=== PATIENT | female | born 2000 | race Caucasian/White ===

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

== ENCOUNTER 2019-09-26 09:28 | Emergency (ER) | payer OTHER, MEDICAID ==
[2019-09-26 09:39] VITALS: BP 134/82
[2019-09-26] MEDS ORDERED: CHERRY SYRUP 10 ML UDC PO ONE (10:08)
[2019-09-26] MEDS ORDERED: DEXAMETHASONE 10 MG/ML VIAL PO STA (10:08)
--- NOTE | 2019-09-26 10:15 | ED Physician Documentation ---
PD HPI HEENT - Stated complaint Stated Complaint: SORE THROAT N/V - Chief complaint Chief Complaint: Heent - History obtained from History obtained from: Patient - History of Present Illness Timing - onset: How many days ago (3) Timing - duration: Days (3) Timing - details: Gradual onset, Still present Location: Throat Improves: Medication Worsens: Swalllowing Associated symptoms: Fever, Congestion, Cough, Other (rash) Similar symptoms before: Diagnosis (tonsilitis) Recently seen: Clinic - Additional information Additional information: 18-year-old female has developed a sore throat and cough and she has now developed blisters to her hands and feet consistent with yzwp-gfse-guf-mouth disease. She did have exposure to a brother of hers over [place] break with tcgx-qkus-qhp-mouth. She did go into the clinic that little more and was diagnosed with jlbr-aexf-rxs-mouth. She is concerned about being able to work with this and requests a work note. She has enlarged tonsils that are cryptic and has had multiple episodes of tonsillitis previously. Review of Systems Constitutional: reports: Fever, Chills, Myalgias, Fatigue Eyes: denies: Decreased vision Ears: denies: Ear pain Nose: reports: Congestion Throat: reports: Sore throat Cardiac: denies: Chest pain / pressure, Palpitations Respiratory: reports: Cough. denies: Dyspnea GI: denies: Abdominal Pain, Nausea, Vomiting : denies: Dysuria, Frequency Skin: reports: Rash Musculoskeletal: reports: Back pain. denies: Neck pain Neurologic: denies: Generalized weakness, Focal weakness, Numbness PD PAST MEDICAL HISTORY - Past Medical History Cardiovascular: None Respiratory: None Endocrine/Autoimmune: None HEENT: Other - Past Surgical History Past Surgical History: No - Present Medications Home Medications: Ambulatory Orders Medication Instructions Recorded Confirmed Doxycycline Hyclate mg PO 09/26/19 Etonogestrel [Nexplanon] 68 mg SQ 09/26/19 - Allergies Allergies/Adverse Reactions: Allergies Allergy/AdvReac Type Severity Reaction Status Date / Time No Known Drug Allergies Allergy Verified 09/26/19 09:39 - Social History Does the pt smoke?: No Smoking Status: Never smoker Does the pt drink ETOH?: No Does the pt have substance abuse?: No - Immunizations Immunizations are current?: Yes - POLST Patient has POLST: No PD ED PE NORMAL - Vitals Vital signs reviewed: Yes (hypertensive ) - General General: Alert and oriented X 3, No acute distress, Well developed/nourished - HEENT HEENT: Atraumatic, PERRL, EOMI, Ears normal, Other (pharynx is with 2+ cryptic tonsil on right and 3+ on left. There is minimal exudate. ) - Neck Neck: Supple, no meningeal sign, No bony TTP, Other (shoddy adenopathy bilat) - Cardiac Cardiac: RRR, No murmur - Respiratory Respiratory: No respiratory distress, Clear bilaterally - Abdomen Abdomen: Soft, Non tender - Back Back: No CVA TTP, No spinal TTP - Derm Derm: Normal color, Warm and dry - Extremities Extremities: No deformity, No edema, Other (There are multiple erythematous papules to the palms. ) - Neuro Neuro: Alert and oriented X 3, No motor deficit, No sensory deficit, Normal speech Eye Opening: Spontaneous Motor: Obeys Commands Verbal: Oriented GCS Score: 15 - Psych Psych: Normal mood, Normal affect Results - Vitals Vitals: Vital Signs - 24 hr 09/26/19 09:36 Temperature 36.4 C L Heart Rate 65 Respiratory 18 Rate Blood Pressure 134/82 H O2 Saturation 98 Oxygen O2 Source Room air - Labs Labs: Laboratory Tests 09/26/19 09:45 Group A Strep Rapid Negative PD MEDICAL DECISION MAKING - ED course Complexity details: considered differential, d/w patient ED course: 18-year-old female with sore throat and rash to hands and feet has ejfp-fhrh-gak-mouth disease and she does have cryptic exudative tonsils as well. These are chronic. Departure - Departure Disposition: 01 Home, Self Care Clinical Impression: Hand, foot and mouth disease Condition: Stable Instructions: ED Hand Foot Mouth Disease Ch Follow-Up: [facility] [Provider Group] [facility] [Provider Group] Forms: Activity restrictions
[2019-09-26 10:42] LABS: RAPID STREP SCREEN Negative (Negative)
== END 2019-09-26 10:53 | disposition home or self-care (01) ==
LOC: ED 09:28
DX: B08.4 Enteroviral vesicular stomatitis with exanthem (principal); J35.1 Hypertrophy of tonsils
CPT/HCPCS: 87070; 87430; 99283; 99284; A9270

== ENCOUNTER 2021-07-27 02:11 | Emergency (ER) | payer MEDICAID, OTHER ==
--- NOTE | 2021-07-27 02:45 | ED Physician Documentation ---
PD HPI LOWER EXT INJURY - Stated complaint Stated Complaint: R KNEE INJ - Chief complaint Chief Complaint: Trauma Ext - History obtained from History obtained from: Patient - History of Present Illness PD HPI LOW EXT INJURY LOCATION: Right, Knee Type of injury: Twist Where injury occurred: Other Timing - onset: Today Improved by: Rest Worsened by: Moving (flexion) Associated symptoms: No: Weakness, Numbness, Tingling, Swelling Similar symptoms before: Has not had sx before Recently seen: Not recently seen - Additional information Additional information: this afternoon, patient was exercising at a gym on [employer] practicing kicking and with the twisting motion of one of the kicks, she had sudden onset of right knee pain with popping sensation. Pain has steadily worsened and is exacerbated with weight-bearing as well as with flexion Review of Systems Musculoskeletal: reports: Joint pain, Pain with weight bearing. denies: Joint swelling Neurologic: denies: Focal weakness, Numbness PD PAST MEDICAL HISTORY - Past Medical History Past Medical History: No Cardiovascular: None Respiratory: None Endocrine/Autoimmune: None HEENT: Other - Past Surgical History Past Surgical History: Yes HEENT: Tonsil/Adenoidectomy - Present Medications Home Medications: Ambulatory Orders Medication Instructions Recorded Confirmed HYDROcod/ACETAM 5/325 [[place] 5/325] 1 - 2 tablet PO Q6H PRN #14 tablet 07/27/21 Ibuprofen [Motrin] 600 mg PO Q6H PRN #20 tab 07/27/21 - Allergies Allergies/Adverse Reactions: Allergies Allergy/AdvReac Type Severity Reaction Status Date / Time No Known Drug Allergies Allergy Verified 07/27/21 02:20 - Social History Does the pt smoke?: No Smoking Status: Never smoker Does the pt drink ETOH?: Yes ETOH Use: Wine Does the pt have substance abuse?: No - Immunizations Immunizations are current?: Yes - POLST Patient has POLST: No PD ED PE NORMAL - Vitals Vital signs reviewed: Yes - General General: Alert and oriented X 3, No acute distress, Well developed/nourished - Extremities Extremities: No deformity, No tenderness to palpate, No edema, No calf tenderness / cord PD ED PE EXPANDED - Extremities Extremities: Limited ROM (limited right knee flexion due to exacerbation of pain ) Results - Vitals Vitals: Vital Signs - 24 hr 07/27/21 04:40 Heart Rate 78 Respiratory 18 Rate Blood Pressure 137/72 H O2 Saturation 99 Oxygen O2 Source Room air - Rads (name of study) right knee xrays Radiology: Prelim report reviewed, See rad report PD MEDICAL DECISION MAKING - ED course Complexity details: reviewed results, re-evaluated patient, considered differential, d/w patient ED course: HPI suggestive of right knee sprain. nontender on exam although flexion is limited due to worsening pain with attempts to flex right knee. Normal plain- film xrays. Placed in knee immobilizer and given crutches to minimize movement and weight-bearing. Given ibuprofen in ED, take-home vicodin and rx for these medications transmitted to her pharmacy I am prescribing a short course of short-acting opioid pain medication for this patient. 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 I have discussed that the opioids are for short term therapy only, and will not be refilled from the ED. Departure - Departure Disposition: 01 Home, Self Care Clinical Impression: Right knee sprain Qualifiers: Encounter type: initial encounter Involved ligament of knee: unspecified ligament Qualified Code(s): S83.91XA - Sprain of unspecified site of right knee, initial encounter Condition: Good Instructions: ED Crutch Walking, ED Immobilizer Knee, ED Sprain Knee Follow-Up: Xu Allen MD [Provider Admit Priv/Credential] - Prescriptions: Ibuprofen [Motrin] 600 mg PO Q6H PRN #20 tab PRN Reason: Pain HYDROcod/ACETAM 5/325 [[place] 5/325] 1 - 2 tablet PO Q6H PRN #14 tablet PRN Reason: Pain Comments: A prescription for ibuprofen and a prescription for hydrocodone with acetaminophen have been electronically submitted to [facility] pharmacy in [place]. I am prescribing a short course of narcotic pain medication for you. These are potentially dangerous and addictive medications that should be used carefully. These medications may constipate you. Take an hwlm-fme-nccdrgo stool softener (docusate) twice daily with plenty of water while taking these medications. If you go 24 hours without a bowel movement, take khtq-eaz-rewwobd miralax, per package instructions. Do not drink or drive while taking these medications. If you received narcotic or sedating medications while in the emergency department, do not drive for 24 hours. Store this medication in a safe, secure place and out of reach of children. It is a violation of federal law to give or sell this medication to another person or to use in a manner other than prescribed. The ED will not refill narcotic prescriptions, including prescriptions lost or stolen. To dispose of unwanted medications: 1. [facility] at [address] in [place] has a medication drop box. They accept prescription medications (in pill form) Saturday through Saturday 9:00 a.m. to 5:00 p.m. 2. The [facility] [employer] accepts prescription medications (in pill form only) for disposal year round. Call for more information. 3. Contact the [facility] for the next [employer] sponsored prescription drug collection event. , [phone], or [phone]; Discharge Date/Time: 07/27/21 04:48
[2021-07-27] MEDS ORDERED: IBUPROFEN 600 MG TABLET PO STA (03:19)
[2021-07-27] MEDS ORDERED: HYDROcod/ACET 5/325 Prepack 4 PO STA (03:19)
[2021-07-27 04:40] VITALS: BP 137/72
--- NOTE | 2021-07-27 08:47 | XRAY Report ---
PROCEDURE: Knee 3 View RT INDICATIONS: Quay a crack in R knee while exercising yesterday TECHNIQUE: 3 views of the right knee were acquired. COMPARISON: None. FINDINGS: Bones: No fractures or dislocations. There is minimal joint space narrowing in the medial compartme nt. No suspicious bony lesions. Soft tissues: No joint effusion. No suspicious soft tissue calcifications. IMPRESSION: 1. No fracture or dislocation. Concordant with preliminary report. Reviewed by: Dennys Nugent MD on 07/27/2021 8:45 AM PST Approved by: Dennys Nugent MD on 07/27/2021 8:45 AM PST Station ID: [id number]
== END 2021-07-27 04:48 | disposition home or self-care (01) ==
LOC: ED 02:11
DX: S83.91XA Sprain of unspecified site of right knee, initial encounter (principal); X50.1XXA Overexertion from prolonged static or awkward postures, initial encounter; Y93.A9 Activity, other involving cardiorespiratory exercise; Y92.39 Other specified sports and athletic area as the place of occurrence of the external cause
CPT/HCPCS: 73562; 99283; A9270

== ENCOUNTER 2021-08-14 09:25 | Outpatient (CLI) | payer OTHER ==
--- NOTE | 2021-08-14 11:09 | MRI Report ---
PROCEDURE: Knee RT W/O INDICATIONS: RIGHT KNEE INJURY TECHNIQUE: Noncontrast sagittal PD fast spin echo and T2 fast spin echo with fat saturation, sagittal 3-D gradie nt sequence with fat saturation; coronal T1 spin echo and PD fast spin echo with fat saturation, and axial PD fast spin echo with fat saturation through the knee. COMPARISON: None. FINDINGS: Image quality: Excellent. Menisci: Linear signal in the posterior horn, medial meniscus, compatible with oblique tear. The late ral meniscus normal morphology and internal signal. The meniscal root ligaments appear intact. Cruciate ligaments: The anterior and posterior cruciate ligaments appear intact. Medial structures: The medial collateral ligament appears intact. The visualized portions of the pes anserinus tendons appear normal. No abnormal bursal fluid. Lateral structures: The lateral collateral ligament complex appear intact. The popliteus tendon appears normal. The iliotibial band appears normal. Anterior structures: The quadriceps and patellar tendons appear intact. Patellar alignment is harinder l. No femoral trochlear dysplasia or ventral trochlear prominence. No edema in the infrapatellar fa t pad. Bones and cartilage: Patchy T2 hyperintense signal in the posterior aspect of the medial and lateral tibial plateaus. Small focus of subchondral edema in the anterolateral femoral condyle. The cartilage of the medial and lateral femorotibial compartments, as well as the patellofemoral comp artment, appears normal in thickness. Joint space: Small joint effusion. No Abdul's cyst. Normal appearing synovial plicae are incidental ly noted. IMPRESSION: 1. Oblique tear in the posterior horn, medial meniscus. 2. Contusion in the posterior aspect of the medial and lateral tibial plateaus. 3. Small joint effusion. Reviewed by: Kota Pillai MD on 08/14/2021 11:07 AM [facility] Approved by: Kota Pillai MD on 08/14/2021 11:07 AM PST Station ID: [id number]
== END 2021-08-14 09:26 | disposition home or self-care (01) ==
LOC: DI 09:25
PROVIDERS: ATTEND Physician Assistant
DX: S83.241A Other tear of medial meniscus, current injury, right knee, initial encounter (principal); M25.461 Effusion, right knee; S80.01XA Contusion of right knee, initial encounter

== ENCOUNTER 2022-04-04 14:00 | Emergency (ER) | payer OTHER ==
[2022-04-04 15:08] LABS: BILIRUBIN,URINE NEGATIVE (NEGATIVE); GLUCOSE, URINE (UA) NEGATIVE (NEGATIVE); KETONES,URINE (UA) NEGATIVE (NEGATIVE); LEUKOCYTE ESTERASE, URINE TRACE (NEGATIVE); NITRITE,URINE NEGATIVE (NEGATIVE); OCCULT BLOOD,URINE LARGE (NEGATIVE); PROTEIN,URINE NEGATIVE (NEGATIVE); UROBILINOGEN,URINE 0.2 (NORMAL) E.U./dL (NORMAL)
[2022-04-04 15:09] LABS: CLARITY,URINE HAZY (CLEAR)
[2022-04-04 15:17] LABS: BACTERIA,URINE Rare /HPF (None Seen); RBC,URINE TNTC /HPF (0-5); SQUAMOUS EPITHELIAL CELL,UR RARE Squamous (<= Few); WBC,URINE 0-3 /HPF (0-5)
--- NOTE | 2022-04-04 16:10 | ED Physician Documentation ---
History of Present Illness - Stated complaint Stated Complaint: WEAKNESS - Chief complaint Chief Complaint: Neuro - History obtained from History obtained from: Patient - History of Present Illness Timing: Prior to arrival - Additonal information Additional information: 21-year-old female with no reported past medical history presents by private vehicle for sudden onset bilateral lower extremity weakness and tingling that began just prior to arrival. Patient states that she was sitting in a chair and when she got up she felt like both of her legs were weak and numb as well as tingling. She states that then the tingling began to spread upwards into her left arm and into the left side of her face. [facility] the symptoms she was experiencing and they recommended that she be evaluated in the ER. Patient states that symptoms have already begun to improve, she no longer feels numbness and tingling in her legs, still endorses some tingling in the side of her face. This is never happened before. Patient denies chest pain, shortness of breath, dysuria, hematuria, syncope, head pain, fevers, other complaints at this time. Review of Systems Ten Systems: 10 systems reviewed and negative Constitutional: denies: Fever, Chills Eyes: denies: Loss of vision, Decreased vision Cardiac: denies: Chest pain / pressure, Palpitations Respiratory: denies: Dyspnea, Cough, Wheezing GI: denies: Abdominal Pain, Nausea, Vomiting : denies: Dysuria, Frequency, Hesitancy Neurologic: reports: Numbness, Other ([place]) PD PAST MEDICAL HISTORY - Past Medical History Past Medical History: Yes Cardiovascular: None Respiratory: None Endocrine/Autoimmune: None HEENT: Other - Past Surgical History Past Surgical History: Yes HEENT: Tonsil/Adenoidectomy - Present Medications Home Medications: Ambulatory Orders Medication Instructions Recorded Confirmed HYDROcod/ACETAM 5/325 [[place] 5/325] 1 - 2 tablet PO Q6H PRN #14 tablet 07/27/21 Ibuprofen [Motrin] 600 mg PO Q6H PRN #20 tab 07/27/21 Meclizine HCl [Motion Sickness] 25 mg PO Q6H PRN #20 tablet 04/04/22 - Allergies Allergies/Adverse Reactions: Allergies Allergy/AdvReac Type Severity Reaction Status Date / Time No Known Drug Allergies Allergy Verified 04/04/22 14:22 - Social History Does the pt smoke?: No Smoking Status: Never smoker Does the pt drink ETOH?: Yes Does the pt have substance abuse?: No - Immunizations Immunizations are current?: Yes - POLST Patient has POLST: No PD ED PE NORMAL - Vitals Vital signs reviewed: Yes - General General: Alert and oriented X 3, No acute distress, Well developed/nourished, Other - HEENT HEENT: Atraumatic, PERRL, EOMI, Ears normal, Moist mucous membranes, Pharynx benign, Dentition benign, Other - Neck Neck: Supple, no meningeal sign, No bony TTP, No adenopathy, Thyroid normal, No JVD, No bruit, C-Spine cleared by NEXUS criteria, Other - Cardiac Cardiac: RRR, No murmur, No gallop, No rub, Strong equal pulses, Other - Respiratory Respiratory: No respiratory distress, Clear bilaterally, Other - Abdomen Abdomen: Normal bowel sounds, Soft, Non tender, Non distended, No organomegaly, Other - Back Back: No CVA TTP, No spinal TTP, Other - Derm Derm: Normal color, Warm and dry, No rash, Other - Extremities Extremities: No deformity, No tenderness to palpate, Normal ROM s pain, No edema, No calf tenderness / cord, Other - Neuro Neuro: Alert and oriented X 3, manager of selection and assessment 2-12 intact, No motor deficit, No sensory deficit, Normal speech, Other - Psych Psych: Normal mood, Normal affect, Other Results - Vitals Vitals: Vital Signs - 24 hr 04/04/22 04/04/22 04/04/22 14:12 15:35 16:40 Temperature 36.3 C L Heart Rate 70 85 80 Respiratory 14 16 12 Rate Blood Pressure 131/84 H 144/82 H 140/84 H O2 Saturation 100 99 98 Oxygen O2 Source Room air - EKG (time done) 1450 Rate: Rate (enter#) (60) Rhythm: NSR [place]: Normal Intervals: Normal WI QRS: Normal - Labs Labs: Microbiology 04/04/22 14:58 Urine Culture - Final Urine,Clean Catch No growth Laboratory Tests 04/04/22 14:58 Urine Color LT RED Urine Clarity HAZY Urine pH 6.0 Ur Specific [place] 1.010 Urine Protein NEGATIVE Urine Glucose (UA) NEGATIVE Urine Ketones NEGATIVE Urine Occult Blood LARGE H Urine Nitrite NEGATIVE Urine Bilirubin NEGATIVE Urine Urobilinogen 0.2 (NORMAL) Ur Leukocyte Esterase TRACE H Urine RBC TNTC H Urine WBC 0-3 Ur Squamous Epith Cells RARE Squamous Urine Bacteria Rare Ur Microscopic Review INDICATED Urine Culture Comments INDICATED PD MEDICAL DECISION MAKING - ED course Complexity details: reviewed results, re-evaluated patient, considered differential, d/w patient ED course: Well-appearing female with now resolved numbness and tingling in her extremities. No focal neurologic deficit noted on exam, sensation is intact and equal bilaterally, NIH score 0. Highly unlikely to be neurologic process given the pattern of the patient's symptoms. Labs and imaging were negative for acute findings. Patient discharged home in stable condition. Neurologically intact at time of discharge. Departure - Departure Disposition: 01 Home, Self Care Clinical Impression: Dizziness Condition: Stable Instructions: Meclizine, ED Vertigo Unspecified Prescriptions: Meclizine HCl [Motion Sickness] 25 mg PO Q6H PRN #20 tablet PRN Reason: Dizziness Discharge Date/Time: 04/04/22 16:41
[2022-04-04 16:42] VITALS: BP 140/84
== END 2022-04-04 16:41 | disposition home or self-care (01) ==
LOC: ED 14:00
DX: R42 Dizziness and giddiness (principal)
CPT/HCPCS: 81001; 81003; 87086; 93005; 99283

== ENCOUNTER 2022-08-05 12:24 | Emergency (ER) | payer OTHER ==
[2022-08-05 14:07] LABS: RAPID STREP SCREEN Negative (Negative)
--- NOTE | 2022-08-05 14:42 | ED Physician Documentation ---
PD HPI URI - Stated complaint Stated Complaint: THROAT PX/FEMALE - Chief complaint Chief Complaint: Heent - History obtained from History obtained from: Patient - History of Present Illness Timing - onset: How many days ago (2) Timing duration: Days (2) Timing details: Abrupt onset, Still present Associated symptoms: Fever, Sore throat, Swollen nodes Contributing factors: No: Sick contact, Travel, Unimmunized Improves by: No: Medication Similar symptoms before: Diagnosis (has had strep throat many times, less frequent since tonsillectomy few years ago. Has still had it at times.) Recently seen: Not recently seen Review of Systems Constitutional: reports: Fever Nose: reports: Sinus pressure / pain. denies: Rhinorrhea / runny nose, Congestion Throat: reports: Sore throat. denies: Swollen tonsils (post tonsillectomy) Respiratory: denies: Cough PD PAST MEDICAL HISTORY - Past Medical History Cardiovascular: None Respiratory: None Endocrine/Autoimmune: None HEENT: Other - Past Surgical History Past Surgical History: Yes HEENT: Tonsil/Adenoidectomy - Present Medications Home Medications: Ambulatory Orders Medication Instructions Recorded Confirmed HYDROcod/ACETAM 5/325 [[place] 5/325] 1 - 2 tablet PO Q6H PRN #14 tablet 07/27/21 Ibuprofen [Motrin] 600 mg PO Q6H PRN #20 tab 07/27/21 Meclizine HCl [Motion Sickness] 25 mg PO Q6H PRN #20 tablet 04/04/22 Amoxicillin 500 mg PO TID #20 cap 08/05/22 - Allergies Allergies/Adverse Reactions: Allergies Allergy/AdvReac Type Severity Reaction Status Date / Time No Known Drug Allergies Allergy Verified 08/05/22 13:51 - Social History Does the pt smoke?: No Smoking Status: Never smoker Does the pt drink ETOH?: Yes Does the pt have substance abuse?: No - Immunizations Immunizations are current?: Yes - POLST Patient has POLST: No PD ED PE NORMAL - Vitals Vital signs reviewed: Yes - General General: Alert and oriented X 3, No acute distress, Well developed/nourished - HEENT HEENT: Ears normal, Moist mucous membranes. No: Pharynx benign (redness without soft tissue swelling in peritonsillar area, with prior tonsillectomy. ) - Neck Neck: Supple, no meningeal sign, Other (anterior adenopathy more to the right. ) Results - Vitals Vitals: Vital Signs - 24 hr 08/05/22 08/05/22 13:47 15:52 Temperature 36.0 C L 36.5 C Heart Rate 89 88 Respiratory 16 16 Rate Blood Pressure 152/96 H 130/80 O2 Saturation 99 99 Oxygen O2 Source Room air - Labs Labs: Laboratory Tests 08/05/22 13:52 Group A Strep Rapid Negative PD MEDICAL DECISION MAKING - ED course Complexity details: reviewed results (rapid strep negative, but symptoms c/w strep likely. ), considered differential, d/w patient Departure - Departure Disposition: Home, Self Care Clinical Impression: Acute pharyngitis Qualifiers: Pharyngitis/tonsillitis etiology: unspecified etiology Qualified Code(s): J02.9 - Acute pharyngitis, unspecified Condition: Stable Record reviewed to determine appropriate education?: Yes Instructions: ED Strep Pharyngitis Poss Follow-Up: CASSIUS BRYAN PA-C [Primary Care Provider] - Prescriptions: Amoxicillin 500 mg PO TID #20 cap Comments: Your exam does not look suspicious for a strep infection. The rapid strep is test is negative but the culture will result in a couple of days. Given the suspicion for it, I would start treating with antibiotics presuming a bacterial infection. Stay well-hydrated. Anti-inflammatory such as naproxen or ibuprofen 2-3 times daily as needed for pain and fevers. Add Tylenol every 4-6 hours if needed. The throat culture should result in couple of days. We will call you if its positive result. Recheck if not improving well over the next several days and return if worse. I transmitted your prescription to [facility] pharmacy. Discharge Date/Time: 08/05/22 15:52
[2022-08-05] MEDS ORDERED: IBUPROFEN 600 MG TABLET PO STA (14:59)
[2022-08-05] MEDS ORDERED: AMOXICILLIN 250 MG CAPSULE PO STA (14:59)
[2022-08-05 15:53] VITALS: BP 130/80
== END 2022-08-05 15:52 | disposition home or self-care (01) ==
LOC: ED 12:24
DX: J02.9 Acute pharyngitis, unspecified (principal)
CPT/HCPCS: 87070; 87430; 99282; 99283; A9270